=== PATIENT | female | born 1980 | race Caucasian/White ===

== ENCOUNTER 2022-12-03 12:41 | Outpatient (CLI) | payer BC | END 2022-12-03 12:42 | disposition home or self-care (01) | LOC: CSHMAMMO 12:41 | PROVIDERS: ATTEND Obstetrics & Gynecology | DX: Z12.31 Encounter for screening mammogram for malignant neoplasm of breast (principal); Z80.3 Family history of malignant neoplasm of breast | CPT/HCPCS: 77063; 77067 ==

== ENCOUNTER 2023-12-04 09:53 | Outpatient (CLI) | payer BC | END 2023-12-04 09:54 | disposition home or self-care (01) | LOC: CSHMAMMO 09:53 | PROVIDERS: ATTEND Obstetrics & Gynecology | DX: Z12.31 Encounter for screening mammogram for malignant neoplasm of breast (principal); N63.10 Unspecified lump in the right breast, unspecified quadrant; N63.20 Unspecified lump in the left breast, unspecified quadrant | CPT/HCPCS: 77063; 77067 ==

== ENCOUNTER 2023-12-11 08:26 | Outpatient (CLI) | payer BC | END 2023-12-11 08:27 | disposition home or self-care (01) | LOC: CSHULT 08:26 | PROVIDERS: ATTEND Family Medicine | DX: N63.10 Unspecified lump in the right breast, unspecified quadrant (principal); N63.20 Unspecified lump in the left breast, unspecified quadrant; N60.01 Solitary cyst of right breast; N60.02 Solitary cyst of left breast ==